=== PATIENT | male | born 1935 | race Caucasian/White ===

== ENCOUNTER 2018-11-07 08:02 | Outpatient (CLI) | payer MEDICARE | END 2018-11-07 23:59 | disposition home or self-care (01) | LOC: PETCFH 08:02 | PROVIDERS: ATTEND Urology | DX: C61 Malignant neoplasm of prostate (principal) | CPT/HCPCS: 78306; A9503 ==

== ENCOUNTER → 2018-11-17 | Outpatient (CLI) | payer MEDICARE ==
[~2018-11-17] MED LIST: OMNIPAQUE 350 MG/ML, 100ML BOTTLE ONE
== END | disposition home or self-care (01) ==
LOC: CFH 12:40
PROVIDERS: ATTEND Urology
DX: C61 Malignant neoplasm of prostate (principal); I10 Essential (primary) hypertension; I25.10 Atherosclerotic heart disease of native coronary artery without angina pectoris; I70.0 Atherosclerosis of aorta; N28.1 Cyst of kidney, acquired
CPT/HCPCS: 72193; 82565; Q9967

== ENCOUNTER 2019-11-17 21:12 | Emergency (ER) | payer MEDICARE ==
[~2019-11-17] VITALS: Ht 167.6 cm; Wt 65.0 kg
[2019-11-17] MEDS ORDERED: ASPI-496 PO (21:18)
--- NOTE | 2019-11-17 21:25 | NUR ---
PT SUNITHA FROM BAR IN [facility], PT REPORTS DRINKING SINCE 10 AM THIS MORNING, DENIES FALL. PLACED VITALS SIGNS MONITORS ON AND CALL LIGHT WITHIN REACH.
--- NOTE | 2019-11-17 23:20 | NUR ---
PT RESTING ON GURNEY, EVEN AND UNLABORED RESPIRATIONS. SAFETY FALL PRECAUTIONS IN PLACE.
--- NOTE | 2019-11-17 23:26 | NUR ---
LATE NOTE: THIS TECH DID EKG
--- NOTE | 2019-11-18 00:20 | NUR ---
Pt resting in bed. Equal chest rise and good cap refill. Pt has director medical safety outside room for continous monitoring.
[2019-11-18 00:45] VITALS: BP 121/57
== END 2019-11-18 01:24 | disposition home or self-care (01) ==
LOC: ED 23:20
DX: F10.220 Alcohol dependence with intoxication, uncomplicated (principal); I25.2 Old myocardial infarction; I10 Essential (primary) hypertension; W01.0XXA Fall on same level from slipping, tripping and stumbling without subsequent striking against object, initial encounter; Y93.89 Activity, other specified; Y92.89 Other specified places as the place of occurrence of the external cause; Y99.8 Other external cause status; Y90.9 Presence of alcohol in blood, level not specified
CPT/HCPCS: 99283

== ENCOUNTER 2020-07-09 09:43 | Day surgery (SDC) | payer MEDICARE ==
[~2020-07-09] VITALS: Ht 172.7 cm; Wt 69.0 kg
[~2020-07-09 09:43] MED LIST changes: +ASPI-496 PO; +ATOR40TA78 PO; +CEFD300C37 PO; +CLOP75TA PO; -OMNIPAQUE 350 MG/ML, 100ML BOTTLE ONE
[2020-07-09] MEDS ORDERED: LIDOCAINE 2%, 20ML ONE (10:26)
[2020-07-09] MEDS ORDERED: LIDOCAINE 2%, 20ML SQ PRN (10:30)
== END 2020-07-09 12:34 | disposition home or self-care (01) ==
LOC: CACL 09:43
PROVIDERS: ATTEND Internal Medicine Cardiovascular Disease
DX: I63.9 Cerebral infarction, unspecified (principal)
CPT/HCPCS: 33285; C1764

== ENCOUNTER → 2021-03-16 | Outpatient (CLI) | payer MEDICARE ==
[~2021-03-16] MED LIST changes: +REGADENOSON 0.4 MG/5 ML SYRINGE ONE
== END | disposition home or self-care (01) ==
LOC: CFH 11:53
PROVIDERS: ATTEND Internal Medicine Cardiovascular Disease
DX: I71.2 Thoracic aortic aneurysm, without rupture (principal)
CPT/HCPCS: 78452; 93017; A9502; J2785